=== PATIENT | female | born 1950 | race Hispanic/Latino ===

== ENCOUNTER 2017-12-11 07:49 | Observation (INO) | payer OTHER ==
[2017-12-04 09:08] LABS: BASOPHILS % 0.7 % (0.0-1.0); EOSINOPHILS # (AUTO) 0.1 (0.0-0.4); EOSINOPHILS % 1.4 % (0.0-6.0); HEMATOCRIT 35.2 % (34.2-44.1); HEMOGLOBIN 11.5 g/dL (12.0-16.0); LYMPHOCYTES # (AUTO) 2.1 (1.0-3.2); LYMPHOCYTES % 36.8 % (18.0-39.1); MEAN CORPUSCULAR HEMOGLOBIN 30.4 pg (28-32); MEAN CORPUSCULAR HGB CONC 32.7 g/dL (31-35); MEAN CORPUSCULAR VOLUME 93.1 fL (81-99); MONOCYTES # (AUTO) 0.4 (0.2-0.8); MONOCYTES % 7.7 % (4.4-11.3); NEUTROPHILS % 53.2 % (38.7-80.0); PLATELET COUNT 187 x10e3/uL (140-360); RED BLOOD COUNT 3.78 x10e6/uL (3.6-5.1); RED CELL DISTRIBUTION WIDTH 15.5 % (11.7-14.4)
[2017-12-04 09:23] LABS: INR 2.8; PARTIAL THROMBOPLASTIN TIME 41.2 seconds (23.8-35.5); PROTHROMBIN TIME 27.7 seconds (11.9-14.5)
[2017-12-04 09:26] LABS: ANION GAP 14.6 mmol/L (8-16); CALCIUM 9.6 mg/dL (8.4-10.2); CREATININE, SERUM 1.3 mg/dL (0.57-1.11); POTASSIUM 4.6 mmol/L (3.5-5.1)
--- NOTE | 2017-12-04 10:35 | Diagnostic Imaging Report ---
PROCEDURE: Frontal and lateral views of the chest. COMPARISON: None. INDICATIONS: PRE OPERATIVE CHEST X-RAY FOR GALLBLADDER SURGERY FINDINGS: Lines/tubes: None. Lungs: The lungs are well inflated and clear. There is no evidence of pneumonia or pulmonary edema. Pleura: There is no pleural effusion or pneumothorax. Heart and mediastinum: The heart and the mediastinum are normal. Tortuous thoracic aorta. Bones: No acute bony abnormality. Degenerative changes of the thoracic spine. The IMPRESSION: No acute radiographic abnormality. Dictated by: Derick Leyva M.D. on 12/04/2017 at 10:35 Electronically approved by: Derick Leyva M.D. on 12/04/2017 at 10:35
[~2017-12-11 07:49] MED LIST: AMLODIPINE BESYL5 MG PO; GLIMEPIRIDE2 MG PO; LOSARTAN/HCTZ PO; MULTAQ400 MG PO; WARFARIN SODIUM3 MG PO
--- OUTSIDE RECORDS SUMMARY | 2017-12-11 07:51 | XMS REPORT ---
Author Author [facility] Address Unknown Phone Unavailable Care Team Providers Care Predictive Maintenance Technician Name Role Phone MARILEE MARTINEZ Unavailable Unavailable Problems This patient has no known problems. Allergies, Adverse Reactions, Alerts This patient has no known allergies or adverse reactions. Medications This patient has no known medications. Results Test Description Test Time Test Comments Text Results Atomic Results Result Comments CHEST 2 VIEWS [place] [address] Patient Name: Theron QUINTANILLA MR #: [id number] : 1950 Age/Sex: 67/F Req #: [id number] Adm Physician: Ordered by: MARILEE MARTINEZ MD Report #: [id number] Location: OR Room/Bed: __ Procedure: [id number] DX/CHEST 2 VIEWS Exam Date: 12/04/17 Exam Time: 0935 REPORT STATUS: Signed PROCEDURE: Frontal and lateral views of the chest. COMPARISON: None. INDICATIONS: PRE OPERATIVE CHEST X-RAY FOR GALLBLADDER SURGERY FINDINGS: Lines/tubes: None. Lungs: The lungs are well inflated and clear. There is no evidence of pneumonia or pulmonary edema. Pleura: There is no pleural effusion or pneumothorax. Heart and mediastinum: The heart and the mediastinum are normal. Tortuous thoracic aorta. Bones: No acute bony abnormality. Degenerative changes of the thoracic spine. The IMPRESSION: No acute radiographic abnormality. Dictated by: Krista Herr M.D. on 12/04/2017 at 10:35 Electronically approved by: Krista Herr M.D. on 12/04/2017 at 10:35 Dictated By: KRISTA HERR MD 1035 Transcribed By: RICKEY on 12/04/17 1035 COPY TO: MARILEE MARTINEZ MD
[2017-12-11 08:07] LABS: INR 1.11; PARTIAL THROMBOPLASTIN TIME 29.3 seconds (23.8-35.5); PROTHROMBIN TIME 13.5 seconds (11.9-14.5)
[2017-12-11 08:49] LABS: ANION GAP 16.8 mmol/L (8-16); CALCIUM 9.7 mg/dL (8.4-10.2); CREATININE, SERUM 1.38 mg/dL (0.57-1.11); POTASSIUM 4.8 mmol/L (3.5-5.1)
[2017-12-11] MEDS ORDERED: ONDANSETRON HCL INJ 2 MG/ML VIAL ONE ×2 (08:53→13:41)
[2017-12-11] MEDS ORDERED: FAMOTIDINE 20 MG/2 ML VIAL IV ONE (08:56)
[2017-12-11] MEDS ORDERED: LIDOCAINE HCL 2% LOCAL INJ 5 ML SDV VIAL INJ ONE (13:41)
[2017-12-11] MEDS ORDERED: ROCURONIUM BROMIDE 10 MG/ML 5ML VIAL ONE (13:41)
[2017-12-11] MEDS ORDERED: PROPOFOL IV EMULSION 10 MG/ML 20 ML VIAL ONE (13:41)
[2017-12-11] MEDS ORDERED: DEXAMETHASONE SOD PHOS INJ 4 MG/ML VIAL ONE (13:41)
[2017-12-11] MEDS ORDERED: SEVOFLURANE INHAL SOLN 250 ML PEN BTL ONE (13:41)
[2017-12-11] MEDS ORDERED: FENTANYL CITRATE/PF 100MCG/2 ML INJ ONE ×2 (14:45→18:11)
[2017-12-11] MEDS ORDERED: MIDAZOLAM HCL 2 MG/2 ML VIAL ONE (14:45)
[2017-12-11] MEDS ORDERED: BUPIVACAINE 0.25%/EPI 30ML SDV INJ ONE (16:15)
[2017-12-11] MEDS ORDERED: HYDROCODONE/APAP 7.5MG-325MG 1 EA TAB PO PRN (17:15)
[2017-12-11] MEDS ORDERED: HYDROMORPHONE 1MG/1ML INJ IV PRN (17:15)
[2017-12-11] MEDS ORDERED: ONDANSETRON HCL INJ 2 MG/ML VIAL IV PRN (17:15)
[2017-12-11] MEDS ORDERED: ACETAMINOPHEN 1000 MG/100 ML 100 ML IV ONE (17:44)
--- NOTE | 2017-12-11 17:49 | Operative Report ---
DATE OF PROCEDURE: December 11, 2017 PREOPERATIVE DIAGNOSIS: 1. Cholelithiasis. 1. Biliary colic. 2. Fatty liver infiltration. POSTOPERATIVE DIAGNOSIS: 1. Cholelithiasis. 1. Biliary colic. 2. Fatty liver infiltration. PROCEDURE PERFORMED: Laparoscopic cholecystectomy. CORONER: JUDIT Bergman ESTIMATED BLOOD LOSS: Minimal. DRAINS: None. COMPLICATIONS: None. INDICATIONS AND FINDINGS: A 67-year-old diabetic female admitted for cholecystectomy for symptomatic cholelithiasis. Preoperatively she had an ultrasound that revealed no ductal dilatation. Her preoperative liver chemistries were normal the day of admission. INTRAOPERATIVE FINDINGS: The patient had several large stones in the gallbladder. There was no ductal dilatation. There was fatty liver infiltration. DESCRIPTION OF PROCEDURE: With the patient lying on the operative table in the supine position, after administration of general endotracheal anesthesia, she was prepped and draped for laparoscopic cholecystectomy. The procedure was begun by establishing a pneumoperitoneum in the right midclavicular line because the patient was rather obese. A pneumoperitoneum was insufflated to 15 mm of pressure after the saline drop test was performed, and a 5 mm trocar placed in that location, the camera introduced. Under direct vision, we placed a 10-11 trocar in the umbilical site that was free of any adhesions. We then rotated the patient to the left and with the head up and placed a 10-11 trocar in the subxiphoid region, and finally a right anterior axillary line 5 mm trocar was placed. The gallbladder was retracted cephalad using grasping forceps through the two 5 mm trocars, and the dissection was begun high on the neck of the gallbladder. There was some edema of the wall of the gallbladder. Then we identified the cystic duct as well as the junction with the common bile duct. The cystic artery was also identified. Then we transected both structures between titanium clips and then mobilized the gallbladder from the liver bed using electrocautery dissection. We then detached the gallbladder, placed it in an endobag, and removed it through the umbilical port. After we did that, we went ahead and inspected the operative field. We cauterized part of the liver bed where the gallbladder was and placed a Surgicel. After ascertaining the hemostasis was absolute, the right upper quadrant was then finally irrigated and aspirated, and the effluent was clear. There was no evidence of bile leak, bleeding, or any apparent bowel injury. Then we released the pneumoperitoneum, closed the wounds using 0 Vicryl for the umbilical fascia, 3-0 Vicryl for the subcutaneous tissue in that location as well as the subxiphoid port, and the skin of all the ports was closed using graciela. Marcaine 0.25% was given as a local block at the end of the case. The patient tolerated the procedure well and was taken to the recovery room in stable condition. Job#: [id number] EV
[2017-12-11] MEDS: SODIUM CHLORIDE 0.9% 1000ML 1,000 ML IV SCH (18:54)
[2017-12-11 19:05] VITALS: BP 141/63
[2017-12-11 20:00] VITALS: BP 113/53
[2017-12-11] MEDS: PANTOPRAZOLE 40 MG 10ML VIAL IV SCH (21:43)
[2017-12-12] VITALS: BP 115/53
[2017-12-12 04:00] VITALS: BP 133/62
[2017-12-12 06:38] LABS: BASOPHILS % 0.1 % (0.0-1.0); HEMATOCRIT 31.9 % (34.2-44.1); HEMOGLOBIN 10.5 g/dL (12.0-16.0); LYMPHOCYTES # (AUTO) 0.8 (1.0-3.2); LYMPHOCYTES % 9.4 % (18.0-39.1); MEAN CORPUSCULAR HEMOGLOBIN 30.5 pg (28-32); MEAN CORPUSCULAR HGB CONC 32.9 g/dL (31-35); MEAN CORPUSCULAR VOLUME 92.7 fL (81-99); MONOCYTES # (AUTO) 0.4 (0.2-0.8); MONOCYTES % 4.5 % (4.4-11.3); NEUTROPHILS # (AUTO) 7.7 (2.1-6.9); NEUTROPHILS % 85.8 % (38.7-80.0); PLATELET COUNT 185 x10e3/uL (140-360); RED BLOOD COUNT 3.44 x10e6/uL (3.6-5.1); RED CELL DISTRIBUTION WIDTH 15.8 % (11.7-14.4)
[2017-12-12 06:53] LABS: ANION GAP 13.9 mmol/L (8-16); CALCIUM 8.8 mg/dL (8.4-10.2); CREATININE, SERUM 1.04 mg/dL (0.57-1.11); POTASSIUM 3.9 mmol/L (3.5-5.1)
[2017-12-12 08:23] VITALS: BP 136/63
[2017-12-12 08:24] VITALS: BP 136/63
[2017-12-12 11:48] VITALS: BP 125/58
[2017-12-12] MEDS: SODIUM CHLORIDE 0.9% 1000ML 1,000 ML IV SCH ×2 (13:01→16:00)
[2017-12-12 16:00] VITALS: BP 140/65
[2017-12-12] MEDS: PANTOPRAZOLE 40 MG 10ML VIAL IV SCH (16:39)
[2017-12-13] MEDS ORDERED: GLIMEPIRIDE 2 MG TAB PO SCH (07:30)
[2017-12-13] MEDS ORDERED: NON-FORMULARY MEDICATION PO SCH (09:00)
[2017-12-13] MEDS ORDERED: HYDROCHLOROTHIAZIDE 25 MG TAB PO SCH (09:00)
[2017-12-13] MEDS ORDERED: LOSARTAN POTASSIUM 100 MG TAB PO SCH (09:00)
[2017-12-13] MEDS ORDERED: AMLODIPINE BESYLATE 5 MG TAB PO SCH (09:00)
== END 2017-12-12 18:13 | disposition home or self-care (01) ==
LOC: OR 07:49 → IMCU 18:22
PROVIDERS: ADMIT Surgery; ATTEND Surgery
DX: K80.10 Calculus of gallbladder with chronic cholecystitis without obstruction (principal); E11.9 Type 2 diabetes mellitus without complications; I10 Essential (primary) hypertension; I49.9 Cardiac arrhythmia, unspecified; K76.0 Fatty (change of) liver, not elsewhere classified
CPT/HCPCS: 36415 ×3; 47562; 71046; 80048 ×2; 80053; 82948 ×2; 85025 ×2; 85610 ×2; 85730 ×2; 88304; 93005; C1766; G0378 ×2; J1100; J2001; J2250; J2405; J7030 ×2